=== PATIENT | male | born 1970 | race Caucasian/White ===

== ENCOUNTER 2017-05-27 20:30 | Outpatient (CLI) | payer OTHER | END 2017-05-27 20:31 | disposition home or self-care (01) | LOC: SLEEPLAB 20:30 | PROVIDERS: ATTEND Family Medicine | DX: G47.33 Obstructive sleep apnea (adult) (pediatric); G47.30 Sleep apnea, unspecified | CPT/HCPCS: 95811 ==

== ENCOUNTER 2018-05-19 05:37 | Emergency (ER) | payer OTHER ==
[2018-05-19 06:28] LABS: #Basophils 0.1 thou/uL (0.0-0.2); #Eosinphils 0.3 thou/uL (0.0-0.7); #Lymphocytes 2.9 thou/uL (1.20-3.40); #Monocytes 1.1 thou/uL (0.11-0.59); #Neutrophils 8.7 thou/uL (1.40-6.50); %Basophils 0.8 % (0.0-1.0); %Eosinophils 2.4 % (0.0-10.0); %Monocytes 8.2 % (0.0-10.0); %Neutrophils 66.7 % (42.0-75.0); Hemoglobin 14.9 g/dL (14.0-18.0); Mean Corpuscular HGB CONC 33.3 g/dL (32.0-36.0); Mean Corpuscular Hemoglobin 29.7 pg (27.0-31.0); Platelet Count 288 thou/uL (130-400); RBC Distribution Width 12.2 % (11.5-14.5)
[2018-05-19] MEDS ORDERED: Lidocaine 1% PF 5 ML VIAL ONE (06:30)
[2018-05-19 06:51] LABS: ALT (SGPT) 46 U/L (8-55); AST (SGOT) 22 U/L (5-34); Albumin 3.6 g/dL (3.5-5.0); Alkaline Phosphatase 82 U/L (40-150); Anion Gap 12 mmol/L (10-20); BUN (Urea Nitrogen) 13 mg/dL (8.9-20.6); Bilirubin, Total 0.6 mg/dL (0.2-1.2); CRP (Inflammatory) 8.82 mg/dL (= or < 0.5); Calc. Creatinine Clearance 0 mL/min (70-130); Calcium 9.1 mg/dL (7.8-10.44); Carbon Dioxide 25 mmol/L (22-29); Chloride 105 mmol/L (98-107); Estimated GFR-MDRD 85; Globulin 3.4 g/dL (2.4-3.5); Glucose 88 mg/dL (70-105); Potassium 3.9 mmol/L (3.5-5.1); Sodium 138 mmol/L (136-145)
[2018-05-19] MEDS ORDERED: Ketorolac Tromethamine 30 MG/ML VIAL ONE (07:32)
[2018-05-19] MEDS ORDERED: Morphine 4 MG/ML VIAL ONE (07:32)
[2018-05-19] MEDS ORDERED: Adacel (T-DAP) 0.5 ML SYRINGE ONE (07:33)
--- NOTE | 2018-05-19 08:35 | RAD ---
RADIOGRAPH LEFT KNEE FOUR VIEWS: HISTORY: A 48-year-old male with left knee pain and swelling. FINDINGS: No acute fracture. Severe DJD at medial compartment with high-grade joint space narrowing. Moderate to severe DJD at the patellofemoral compartment. Joint effusion. IMPRESSION: 1. High-grade osteoarthrosis of the left knee, especially in the medial compartment. 2. Small joint effusion. POS: ARNEL
[2018-05-19 08:56] LABS: BF Color Pink; Body Fluid Source Synovial Fluid; Clarity Cloudy/Turbid (Clear); RBC Background Count 0.002; RBC Count-Automated 34000 /cumm; Tube # EDTA; WBC/NonHematic-Auto 15400 /cumm
[2018-05-19 09:51] LABS: BF Segmented Neutrophils 83 %; Cell Count Non Hematic 3 %; Lymphocytes 14 %
== END 2018-05-19 09:34 | disposition home or self-care (01) ==
LOC: ERS 05:37
DX: M17.12 Unilateral primary osteoarthritis, left knee (principal); G47.30 Sleep apnea, unspecified; E78.5 Hyperlipidemia, unspecified; Z79.899 Other long term (current) drug therapy
CPT/HCPCS: 20610; 36415; 80053; 82945; 85025; 85060; 86140; 87070; 87205; 89051; 89060; 90471; 90715; 96372; J1885; J2001; J2270